=== PATIENT | male | born 1950 | race Caucasian/White ===

== ENCOUNTER → 2016-12-18 | Outpatient (CLI) | payer OTHER, BC ==
[~2016-12-18] MED LIST: ASCO10003 PO; CYAN100020 PO; HYDR-5688 PO; NXM/40 PO; TURM1CAP4 PO
--- NOTE | 2016-12-18 17:43 | DIAGNOSTIC IMAGING REPORT ---
CHEST 2 VIEWS ROUTINE CLINICAL HISTORY: N20.0 preoperative. Nephrocalcinosis. COMPARISON STUDY: No previous studies for comparison. FINDINGS: The bones soft tissues and hemidiaphragms are normal. The cardiomediastinal silhouette is normal. The lungs are clear. The pulmonary vasculature is normal. IMPRESSION: Negative chest. Electronically signed by: Amari James M.D. 12/18/2016 5:42 PM Dictated Date/Time: 12/18/2016 5:41 PM
[2016-12-18 18:10] LABS: BASO % 0.4 %; BASO ABS # 0.03 K/uL (0-0.2); COMPLETE YES; EOS % 1.2 %; HEMATOCRIT 42.3 % (42-52); IG% 0.4 %; LYMPH % 22.2 %; LYMPH ABS # 1.86 K/uL (1.2-3.4); MEAN CORPUSCULAR HEMOGLOBIN 31.5 pg (25-34); MEAN CORPUSCULAR HGB CONC 34.3 g/dl (32-36); MEAN PLATELET VOLUME 10.2 fL (7.4-10.4); MONO % 10.9 %; NEUT % 64.9 %; PLATELET COUNT 259 K/uL (130-400); WHITE BLOOD COUNT 8.36 K/uL (4.8-10.8)
[2016-12-18 18:36] LABS: BLOOD UREA NITROGEN 18 mg/dl (7-18); BUN/CREATININE RATIO 16.4 (10-20); CALCIUM 9.3 mg/dl (8.5-10.1); CARBON DIOXIDE 25 mmol/L (21-32); CHLORIDE 106 mmol/L (98-107); GLUCOSE 78 mg/dl (70-99); SODIUM 141 mmol/L (136-145)
== END | disposition home or self-care (01) ==
LOC: C.LAB 17:14
PROVIDERS: ATTEND Urology
DX: N20.0 Calculus of kidney (principal)

== ENCOUNTER → 2016-12-21 | Outpatient (CLI) | payer OTHER ==
--- NOTE | 2016-12-21 17:01 | DIAGNOSTIC IMAGING REPORT ---
KUB CLINICAL HISTORY: N20.0 Nephrolithiasis COMPARISON STUDY: Outside CT scan dated to 1016 FINDINGS: The renal shadows are largely obscured by overlying bowel gas and fecal material. There is no pathologic bowel dilatation. Prostate brachytherapy seeds are visualized. A 9 mm calculus at the level of the left ureteropelvic junction is not visualized with certainty on this study. IMPRESSION: 1. Technically limited study secondary to overlying bowel gas and fecal material 2. The recently described 9 mm calculus at the level the left ureteropelvic junction is not visualized with certainty Electronically signed by: Gil Atkinson M.D. 12/21/2016 5:00 PM Dictated Date/Time: 12/21/2016 4:57 PM
== END | disposition home or self-care (01) ==
LOC: C.RAD1850 16:38
PROVIDERS: ATTEND Urology
DX: N20.0 Calculus of kidney (principal)

== ENCOUNTER → 2016-12-22 | Day surgery (SDC) | payer OTHER, BC ==
[2016-12-21 08:14] VITALS: Ht 167.6 cm; Wt 84.1 kg
[~2016-12-22] VITALS: Ht 167.6 cm; Wt 84.1 kg
[~2016-12-22] MED LIST changes: +ACETAMINOPHEN 325 MG TAB PO PRN; +ATROPINE SULFATE 0.1 MG/ML 5ML SYR IV PRN; +CIPROFLOXACIN 400MG / D5W IV SCH; +EpHEDrine SULFATE INJ 50 MG/ML AMP IV PRN; +FENTANYL CITRATE INJ 50 MCG/1 ML 2 ML VIAL IV PRN; +FENTANYL CITRATE INJ 50 MCG/1 ML 2 ML VIAL ONE; +HYDROCODONE/ACETAMOPHEN 5/325MG TAB PO PRN; +LACTATED RINGER'S 1000ML 1,000 ML IV SCH; +LIDOCAINE HCL 2% 2 ML VIAL (20MG/ML) ONE; +MIDAZOLAM HCL 1 MG/ML 2ML VIAL ONE; +ONDANSETRON INJ 2 MG/ML 2 ML VIAL ONE; +PATIENT'S ALLERGY INFO NEEDS ENTERED SCH; +PROPOFOL IV EMULSION 10 MG/ML 20 ML VIAL IV ONE; +SODIUM CHLORIDE 0.9% 1000ML 1,000 ML IV SCH; +TAMSULOSIN HCL 0.4 MG CAP PO SCH
--- NOTE | 2016-12-22 10:07 | History & Physical Bridge Note ---
H&P Re-Evaluation Bridge Note: I have examined the patient, reviewed the History & Physical and in the interval since the performance of the History & Physical I have noted the following changes of clinical significance: No changes noted
--- NOTE | 2016-12-22 10:36 | Discharge Instructions-SurgCtr ---
Discharge Instructions Visit Reason for Visit: Stones Discharge Discharge Diagnosis / Problem: stone Discharge Goals Goal(s): Decrease discomfort, Improve function, Increase independence, Improve disease control Activity Recommendations Activity Limitations: resume your previous activity Lifting Limitations: none Exercise/Sports Limitations: none May Resume Sexual Activity: when tolerated Shower/Bathe: no limitations Driving or Machine Use: no limitations Anesthesia . Post Anesthesia Instructions: If you have had General Anesthesia or IV Sedation: * Do not drive today. * Resume driving when surgeon permits. * Do not make important decisions or sign legal documents today. * Call surgeon for: 1. Temperature elevations greater than 101 degrees F. 2. Uncontrollable pain. 3. Excessive bleeding. 4. Persistent nausea and vomiting. 5. Medication intolerance (nausea, vomiting or rash). * For nausea and vomiting use only clear liquids such as: tea, soda, bouillon until nausea subsides, then gradually increase diet as tolerated. * If you have any concerns or questions, call your surgeon's office. If physician is unavailable and it is an emergency, call 911 or go to the nearest emergency room. . Diet Recommendations Home Diet: no limitations Procedures Procedures Performed: Left Extracorporeal Shock Wave Lithotripsy Pending Studies Studies pending at discharge: no Medical Emergencies . Who to Call and When: Medical Emergencies: If at any time you feel your situation is an emergency, please call 911 immediately. . Non-Emergent Contact Non-Emergency issues call your: Urologist Call Non-Emergent contact if: temperature is above 101.5, your pain is not controlled, your pain is worsening . . "Provider Documentation" section prepared by Patrick Carrillo.
--- NOTE | 2016-12-22 10:38 | [facility] Post Operative Brief Note ---
Immediate Operative Summary Operative Date Dec 22, 2016. Pre-Operative Diagnosis Left Renal Stone Post-Operative Diagnosis same Procedure(s) Performed Left Extracorporeal Shock Wave Lithotripsy Surgeon Dr. Guillermo Benítez Supervisor [employer] Surgeon(s) 0 Estimated Blood Loss 0 Findings left renal stone - fragmented nicely Specimens none Drains none Anesthesia gen Complication(s) None Disposition Recovery Room / PACU (stable)
[2016-12-22 11:45] VITALS: TEMP 36.6
[2016-12-22 12:00] VITALS: BP 146/82; PULSE 78; O2SAT 97
--- NOTE | 2016-12-22 12:06 | Anesthesia Progress Nt - [facility] ---
Anesthesia Post Op Note Date & Time Dec 22, 2016 at 12:06 Vital Signs Pain Intensity: 4 Vital Signs Past 12 Hours Date Time Temp Pulse Resp B/P Pulse Ox O2 Delivery O2 Flow Rate FiO2 12/22/16 11:45 36.6 81 16 141/92 97 Room Air 12/22/16 11:24 68 15 120/92 97 12/22/16 11:24 69 15 12/22/16 11:24 36.5 12/22/16 11:19 81 20 12/22/16 11:19 80 20 136/90 97 12/22/16 11:14 68 16 12/22/16 11:14 67 16 133/93 98 12/22/16 11:09 75 23 123/90 100 12/22/16 11:09 75 23 12/22/16 11:04 73 18 12/22/16 11:04 77 18 143/86 99 12/22/16 11:03 37.0 76 16 137/96 100 Diffusion Mask 8 12/22/16 09:11 36.7 86 20 136/89 95 Room Air Notes Mental Status: alert / awake / arousable, participated in evaluation Pt Amnestic to Procedure: Yes Nausea / Vomiting: adequately controlled Pain: adequately controlled Airway Patency, RR, SpO2: stable & adequate BP & HR: stable & adequate Hydration State: stable & adequate Anesthetic Complications: no major complications apparent
--- NOTE | 2016-12-24 13:40 | OPERATIVE REPORT ---
DATE OF OPERATION: 12/22/2016 PREOPERATIVE DIAGNOSIS: Left ureteropelvic junction calculus. POSTOPERATIVE DIAGNOSIS: Left ureteropelvic junction calculus. PROCEDURE PERFORMED: Left extracorporeal shockwave lithotripsy. ANESTHESIA: General. ESTIMATED BLOOD LOSS: Zero. URINE OUTPUT: Not recorded. SPECIMENS: There were no specimens. DRAINS: There were no drains. COMPLICATIONS: There were no complications. DESCRIPTION OF THE PROCEDURE: Sha Schroeder was identified in the preoperative holding area, appropriate informed consents reviewed and completed and the patient was transported to the operating suite. After induction of general anesthesia, his stone was localized under fluoroscopy and lithotripsy was commenced. A total of 2500 shocks were delivered to the stone. Of note, further information can be found on the [facility] Information Sheet. At the conclusion of the case, the patient was extubated and taken to the PACU in stable condition. There were no complications. I attest to the content of the Intraoperative Record and any orders documented therein. Any exceptio ns are noted below.
== END | disposition home or self-care (01) ==
LOC: X.SURG 09:03
PROVIDERS: ATTEND Urology
DX: N20.0 Calculus of kidney (principal); N13.8 Other obstructive and reflux uropathy; C61 Malignant neoplasm of prostate; Z87.442 Personal history of urinary calculi; M19.90 Unspecified osteoarthritis, unspecified site; Z98.890 Other specified postprocedural states

== ENCOUNTER 2016-12-24 02:14 | Inpatient (IN) | payer OTHER, BC ==
[~2016-12-24] VITALS: Ht 167.6 cm; Wt 85.0 kg
[~2016-12-24 02:14] MED LIST changes: -ACETAMINOPHEN 325 MG TAB PO PRN; -ATROPINE SULFATE 0.1 MG/ML 5ML SYR IV PRN; -CIPROFLOXACIN 400MG / D5W IV SCH; -EpHEDrine SULFATE INJ 50 MG/ML AMP IV PRN; -FENTANYL CITRATE INJ 50 MCG/1 ML 2 ML VIAL IV PRN; -FENTANYL CITRATE INJ 50 MCG/1 ML 2 ML VIAL ONE; -HYDROCODONE/ACETAMOPHEN 5/325MG TAB PO PRN; -LACTATED RINGER'S 1000ML 1,000 ML IV SCH; -LIDOCAINE HCL 2% 2 ML VIAL (20MG/ML) ONE; -MIDAZOLAM HCL 1 MG/ML 2ML VIAL ONE; -ONDANSETRON INJ 2 MG/ML 2 ML VIAL ONE; -PATIENT'S ALLERGY INFO NEEDS ENTERED SCH; -PROPOFOL IV EMULSION 10 MG/ML 20 ML VIAL IV ONE; -SODIUM CHLORIDE 0.9% 1000ML 1,000 ML IV SCH; -TAMSULOSIN HCL 0.4 MG CAP PO SCH
[2016-12-24] MEDS ORDERED: SODIUM CHLORIDE 0.9% 500ML 500 ML IV STA (03:35)
[2016-12-24] MEDS ORDERED: HYDROmorphone INJ 1 MG/ML SYR IV STA ×2 (03:35→04:12)
[2016-12-24] MEDS ORDERED: SODIUM CHLORIDE 0.9% 1000ML 1,000 ML IV STA (03:35)
[2016-12-24] MEDS ORDERED: ONDANSETRON INJ 2 MG/ML 2 ML VIAL IV STA (03:35)
[2016-12-24 03:44] LABS: BASO % 0.2 %; BASO ABS # 0.02 K/uL (0-0.2); COMPLETE YES; EOS % 0.2 %; HEMATOCRIT 40.9 % (42-52); IG% 0.2 %; LYMPH % 9.7 %; LYMPH ABS # 1.24 K/uL (1.2-3.4); MEAN CELL VOLUME 91.9 fL (80-100); MEAN CORPUSCULAR HEMOGLOBIN 31.5 pg (25-34); MEAN CORPUSCULAR HGB CONC 34.2 g/dl (32-36); MEAN PLATELET VOLUME 10.2 fL (7.4-10.4); MONO % 9.5 %; NEUT % 80.2 %; PLATELET COUNT 255 K/uL (130-400); RED BLOOD COUNT 4.45 M/uL (4.7-6.1); WHITE BLOOD COUNT 12.72 K/uL (4.8-10.8)
[2016-12-24 03:55] LABS: ALT/SGPT 31 U/L (12-78); BLOOD UREA NITROGEN 10 mg/dl (7-18); BUN/CREATININE RATIO 6.1 (10-20); CALCIUM 8.9 mg/dl (8.5-10.1); CARBON DIOXIDE 28 mmol/L (21-32); CHLORIDE 101 mmol/L (98-107); GLUCOSE 110 mg/dl (70-99); POTASSIUM 4.2 mmol/L (3.5-5.1); SODIUM 136 mmol/L (136-145)
[2016-12-24 03:58] LABS: AST/SGOT 17 U/L (15-37)
[2016-12-24 03:58] LABS: URINE APPEARANCE CLEAR (CLEAR); URINE BILIRUBIN NEG (NEG); URINE COLOR YELLOW; URINE NITRITE NEG (NEG); URINE SPECIFIC GRAVITY 1.024 (1.000-1.030); UROBILINOGEN NEG (NEG); ZZUR CULT IF INDIC CLEAN CATCH NO
[2016-12-24 03:59] LABS: ALKALINE PHOSPHATASE 104 U/L (45-117)
[2016-12-24 04:00] LABS: MANUAL MICROSCOPIC REQUIRED? NO; REVIEW REQ? NO
--- NOTE | 2016-12-24 04:02 | EMERGENCY ROOM VISIT NOTE ---
History Report prepared by Jocelyne: Zackary Alejandra Under the Supervision of: Dr. Zoila Rome M.D. First contact with patient: 03:18 Chief Complaint: KIDNEY STONE Stated Complaint: KIDNEY STONE History of Present Illness The patient is a 66 year old male who presents to the Emergency Room with complaints of worsening left flank pain since this morning. The patient also has pain in the left lower abdomen that radiates to his groin. The patient was diagnosed with a kidney stone two days ago with Dr. Benítez (Urologist). He had an 8 mm stone broken up. The patient denies any vomiting. He has not been eating much secondary to pain. The patient did not have a bowel movement for the past two days. He is not on any stool softeners. The patient has been taking Hydrocodone with his last dose being at midnight. Source of History: patient Onset: this morning Position: back (left flank) Quality: other (kidney stone) Timing: worsening Modifying Factors (Relieving): narcotics Associated Symptoms: + abdominal pain, No vomiting Review of Systems See HPI for pertinent positives & negatives. A total of 10 systems reviewed and were otherwise negative. Past Medical & Surgical Medical Problems: (1) Intractable pain (2) Kidney stone Family History No pertinent family history Social History Smoking Status: Never Smoker Marital Status: Housing Status: lives with family Current/Historical Medications Scheduled Cyanocobalamin (Vitamin B12), 1 TAB PO QAM Esomeprazole Magnesium (Nexium), 40 MG PO QAM Turmeric (Curcuma Longa) (Turmeric), 1 CAP PO QAM Scheduled PRN Hydrocodone/Acetaminophen 5MG/325MG ([place] 5MG/325MG), 1 TAB PO TID PRN for Pain Allergies Coded Allergies: Meperidine (Verified Allergy, Severe, ANAPHYLAXIS, 12/24/16) Physical Exam Vital Signs Date Time Temp Pulse Resp B/P Pulse Ox O2 Delivery O2 Flow Rate FiO2 12/24/16 06:53 101 20 144/106 94 Room Air 12/24/16 05:53 82 18 138/91 94 Room Air 12/24/16 04:08 87 18 161/103 93 Room Air 12/24/16 02:16 36.4 94 18 117/78 94 Room Air Physical Exam Vital signs reviewed. General: Pale and ill-appearing male, in no significant distress. HEENT: No scleral icterus, PERRLA, neck supple. Atraumatic. Cardiovascular: Regular rate and rhythm, no extra sounds. Pulmonary: Clear to auscultation bilaterally, normal work of breathing. Abdomen: Mildly tender to the left upper abdomen and flank, no rebound or guarding. Musculoskeletal: Atraumatic, no peripheral edema. Neurologic: Patient awake alert and oriented x 3, full strength in all 4 extremities. Cranial nerves 2 through 12 grossly intact. Skin: Warm, dry, no rash Medical Decision & Procedures ER Provider Diagnostic Interpretation: X-ray results as stated below per my interpretation and radiologist interpretation. Other radiology results as stated below per my review and radiologist interpretation: ABDOMEN AND PELVIS CT WITHOUT CONTRAST CT DOSE: 1416.84 mGy.cm HISTORY: Left flank pain after lithotripsy TECHNIQUE: Multiaxial CT images of the abdomen and pelvis were performed without contrast. COMPARISON STUDY: Abdomen and pelvis CT 12/08/2016. FINDINGS: Interval development of a left renal subcapsular hematoma resulting in moderate compression of the renal parenchyma. This measures up to 3 cm in thickness. Trace left perinephric edema/hemorrhage. Multiple stones seen within the distal left ureter/ureterovesical junction with the largest measuring 5 mm. The stone within the left renal pelvis is no longer present. There is mild to moderate left-sided hydroureteronephrosis. Small fat-containing bilateral inguinal hernias. Multiple brachytherapy seeds within the prostate gland. Borderline distended gas-filled colon. Moderate stool within the proximal colon. This favors a mild ileus. Small fat-containing umbilical hernia. Hepatic steatosis. The unenhanced gallbladder, spleen, and adrenal glands are unremarkable. There is a punctate stone within the right kidney. No right-sided hydronephrosis. The unenhanced pancreas is unremarkable. IMPRESSION: 1. Left renal subcapsular hematoma, measuring up to 3 cm with moderate compression of the renal parenchyma. There is also trace left perinephric edema/hemorrhage. 2. Multiple stones within the distal left ureter/ureterovesical junction resulting in mild to moderate hydronephrosis. 3. Right-sided nephrolithiasis. Electronically signed by: Allan Gomez M.D. 12/24/2016 6:57 AM Dictated Date/Time: 12/24/2016 6:52 AM KUB HISTORY: Left flank pain COMPARISON: KUB 12/21/2016. FINDINGS: Mildly distended gas and stool-filled colon. A few mildly distended gas-filled loops of small bowel. This favors an ileus. Radiation seeds of the prostate. There are multiple stones within the distal left ureter/ureterovesical junction with the largest measuring 5 mm. No pneumoperitoneum or pneumatosis. No renal calculi. IMPRESSION: Multiple stones within the distal left ureter/ureterovesical junction. Electronically signed by: Allan Gomez M.D. 12/24/2016 7:38 AM Dictated Date/Time: 12/24/2016 7:37 AM Laboratory Results Test 12/24/16 02:30 12/24/16 02:35 Urine Color YELLOW Urine Appearance CLEAR (CLEAR) Urine pH 5.0 (4.5-7.5) Urine Specific [place] 1.024 (1.000-1.030) Urine Protein TRACE (NEG) Urine Glucose (UA) NEG (NEG) Urine Ketones TRACE (NEG) Urine Occult Blood 2+ (NEG) Urine Nitrite NEG (NEG) Urine Bilirubin NEG (NEG) Urine Urobilinogen NEG (NEG) Urine Leukocyte Esterase NEG (NEG) Urine WBC (Auto) 1-5 /hpf (0-5) Urine RBC (Auto) 10-30 /hpf (0-4) Urine Hyaline Casts (Auto) 1-5 /lpf (0-5) Urine Epithelial Cells (Auto) 5-10 /lpf (0-5) Urine Bacteria (Auto) NEG (NEG) Total Bilirubin 0.8 mg/dl (0.2-1) Direct Bilirubin mg/dl (0-0.2) Aspartate Amino Transf (AST/SGOT) 17 U/L (15-37) Alanine Aminotransferase (ALT/SGPT) 31 U/L (12-78) Alkaline Phosphatase 104 U/L (45-117) Total Protein 7.7 gm/dl (6.4-8.2) Albumin 3.9 gm/dl (3.4-5.0) Chemistry Specimen Hemolysis Laboratory results per my review. Medications Administered Medications (Trade) Dose Ordered Sig/Rk Route Start Time Stop Time Status Last Admin Dose Admin Sodium Chloride 500 ml @ 999 mls/hr Q31M STAT IV 12/24/16 03:35 12/24/16 04:05 DC 12/24/16 03:45 999 MLS/HR Sodium Chloride (Nss 1000ml) 1,000 ml @ 125 mls/hr Q8H STAT IV 12/24/16 03:35 12/24/16 09:17 DC 12/24/16 03:45 125 MLS/HR Hydromorphone HCl (Dilaudid Inj) 1 mg NOW STAT IV 12/24/16 03:35 12/24/16 03:39 DC 12/24/16 03:46 1 MG Ondansetron HCl (Zofran Inj) 4 mg NOW STAT IV 12/24/16 03:35 12/24/16 03:39 DC 12/24/16 03:46 4 MG Hydromorphone HCl (Dilaudid Inj) 1 mg NOW STAT IV 12/24/16 04:12 12/24/16 04:13 DC 12/24/16 04:17 1 MG Hydromorphone HCl (Dilaudid Inj) 0.5 mg NOW STAT IV 12/24/16 06:36 12/24/16 06:37 DC 12/24/16 06:53 0.5 MG ED Course 0335: Past medical records reviewed. The patient was evaluated in room A3. A complete history and physical examination was performed. 0335: Zofran 4 mg IV, Dilaudid 1 mg IV, NSS 1000 ml @ 999 mls/hr, NSS 500 ml @ 999 mls/hr. 0412: Dilaudid 1 mg IV. 0636: Dilaudid 0.5 mg IV. 0710: Spoke with the agronomy professor Urologist. 0730: Spoke with Dr. Orellana, [facility]. The patient will be evaluated. Medical Decision Differential diagnosis: Etiologies such as renal colic, appendicitis, diverticulitis, mesenteric ischemia, aortic pathology, infections, inflammatory bowel disease, PUD, biliary pathology, UTI, as well as others were entertained. This patient was evaluated and appeared to be in significant discomfort. IV access was obtained and laboratory work was drawn. Patient was medicated with IV Dilaudid and Zofran. He was hydrated with normal saline solution. The patient required several doses of IV Dilaudid to obtain a reasonable level of comfort. A KUB was obtained and reveals multiple stones within the left distal ureter. The patient continued to complain of significant discomfort. He was sent for CT scan of the abdomen and pelvis which is read as above with a large left renal hematoma. I did discuss the case with Dr. Benítez of urology. He has recommended medical management for pain control and urology consultation. The patient seems happy with this plan and agrees. The case was discussed with Dr. Orellana of the hospitalist service who will evaluate the patient further. Consults Time Called: [phone] Consulting Physician: Dr. Orellana, [facility] Returned Call: [phone]: Spoke with Dr. Orellana [facility]. The patient will be evaluated. Impression Primary Impression: Left flank pain Additional Impressions: Calculus of distal ureter Renal hematoma, left Scribe Attestation The scribe's documentation has been prepared under my direction and personally reviewed by me in its entirety. I confirm that the note above accurately reflects all work, treatment, procedures, and medical decision making performed by me. Departure Information Dispostion Being Evaluated By Hospitalist Prescriptions Hydrocodone/Acetaminophen 5MG/325MG ([place] 5MG/325MG) Tab 1 TAB PO TID Y for Pain, #14 TAB PRN PAIN Prov: Kirstin Lockett MD 12/26/16 Referrals Luis Trejo (PCP) Patient Instructions My [facility] Problem Qualifiers Additional Impressions: Renal hematoma, left Encounter type: initial encounter Qualified Codes: S37.012A - Minor contusion of left kidney, initial encounter
[2016-12-24] MEDS ORDERED: HYDROmorphone INJ 0.5 MG/0.5 ML SYR IV STA (06:36)
--- NOTE | 2016-12-24 06:59 | DIAGNOSTIC IMAGING REPORT ---
ABDOMEN AND PELVIS CT WITHOUT CONTRAST CT DOSE: 1416.84 mGy.cm HISTORY: Left flank pain after lithotripsy TECHNIQUE: Multiaxial CT images of the abdomen and pelvis were performed without contrast. COMPARISON STUDY: Abdomen and pelvis CT 12/08/2016. FINDINGS: Interval development of a left renal subcapsular hematoma resulting in moderate compression of the renal parenchyma. This measures up to 3 cm in thickness. Trace left perinephric edema/hemorrhage. Multiple stones seen within the distal left ureter/ureterovesical junction with the largest measuring 5 mm. The stone within the left renal pelvis is no longer present. There is mild to moderate left-sided hydroureteronephrosis. Small fat-containing bilateral inguinal hernias. Multiple brachytherapy seeds within the prostate gland. Borderline distended gas-filled colon. Moderate stool within the proximal colon. This favors a mild ileus. Small fat-containing umbilical hernia. Hepatic steatosis. The unenhanced gallbladder, spleen, and adrenal glands are unremarkable. There is a punctate stone within the right kidney. No right-sided hydronephrosis. The unenhanced pancreas is unremarkable. IMPRESSION: 1. Left renal subcapsular hematoma, measuring up to 3 cm with moderate compression of the renal parenchyma. There is also trace left perinephric edema/hemorrhage. 2. Multiple stones within the distal left ureter/ureterovesical junction resulting in mild to moderate hydronephrosis. 3. Right-sided nephrolithiasis. Electronically signed by: Allan Gomez M.D. 12/24/2016 6:57 AM Dictated Date/Time: 12/24/2016 6:52 AM
--- NOTE | 2016-12-24 07:40 | DIAGNOSTIC IMAGING REPORT ---
KUB HISTORY: Left flank pain COMPARISON: KUB 12/21/2016. FINDINGS: Mildly distended gas and stool-filled colon. A few mildly distended gas-filled loops of small bowel. This favors an ileus. Radiation seeds of the prostate. There are multiple stones within the distal left ureter/ureterovesical junction with the largest measuring 5 mm. No pneumoperitoneum or pneumatosis. No renal calculi. IMPRESSION: Multiple stones within the distal left ureter/ureterovesical junction. Electronically signed by: Allan Gomez M.D. 12/24/2016 7:38 AM Dictated Date/Time: 12/24/2016 7:37 AM
[2016-12-24] MEDS ORDERED: ONDANSETRON INJ 2 MG/ML 2 ML VIAL IV PRN (07:45)
[2016-12-24] MEDS: SODIUM CHLORIDE 0.9% 1000ML 1,000 ML IV SCH ×2 (07:56→17:46)
[2016-12-24 08:21] VITALS: O2SAT 94; Ht 167.6 cm; Wt 85.0 kg
[2016-12-24 09:10] LABS: PARTIAL THROMBOPLASTIN RATIO 1.2; PROTHROMBIN TIME (PATIENT) 10.6 SECONDS (9.0-12.0)
[2016-12-24 09:22] VITALS: BP 150/97; PULSE 94; TEMP 36.9; O2SAT 91
[2016-12-24] MEDS: HYDROmorphone INJ 1 MG/ML SYR IV PRN ×4 (09:30→23:20)
[2016-12-24] MEDS ORDERED: TAMSULOSIN HCL 0.4 MG CAP PO ONE (10:00)
--- NOTE | 2016-12-24 10:35 | Urology Consultation ---
History General Date of Service: Dec 24, 2016. Primary Care Physician: Luis Trejo Pt seen a urologist before?: Yes If yes, why?: prostate ca; stones History of Present Illness 66y/o male s/p L ESWL on Sunday - started passing some stones yesterday morning - pain simultaneously started and progressed over the next several hours - ultimately led to ER visit - no fevers - some hematuria - some further stone passage - difficult to control pain in the ER - had a KUB (distal stones) - subsequent CT - shows a small/moderate subcapsular hematoma - currently feeling ok - greatly prefers to try to deal with the distal ureteral stones conservatively rather than with a cysto/stent 12/24/16 02:35 Red Blood Count 4.45, Mean Corpuscular Volume 91.9, Mean Corpuscular Hemoglobin 31.5, Mean Corpuscular Hemoglobin Concent 34.2, Mean Platelet Volume 10.2, Neutrophils (%) (Auto) 80.2, Lymphocytes (%) (Auto) 9.7, Monocytes (%) (Auto) 9.5, Eosinophils (%) (Auto) 0.2, Basophils (%) (Auto) 0.2, Neutrophils # (Auto) 10.20, Lymphocytes # (Auto) 1.24, Monocytes # (Auto) 1.21, Eosinophils # (Auto) 0.02, Basophils # (Auto) 0.02 12/24/16 02:35 Test 12/24/16 02:30 12/24/16 02:35 12/24/16 08:24 Urine Color YELLOW Urine Appearance CLEAR (CLEAR) Urine pH 5.0 (4.5-7.5) Urine Specific [place] 1.024 (1.000-1.030) Urine Protein TRACE (NEG) Urine Glucose (UA) NEG (NEG) Urine Ketones TRACE (NEG) Urine Occult Blood 2+ (NEG) Urine Nitrite NEG (NEG) Urine Bilirubin NEG (NEG) Urine Urobilinogen NEG (NEG) Urine Leukocyte Esterase NEG (NEG) Urine WBC (Auto) 1-5 /hpf (0-5) Urine RBC (Auto) 10-30 /hpf (0-4) Urine Hyaline Casts (Auto) 1-5 /lpf (0-5) Urine Epithelial Cells (Auto) 5-10 /lpf (0-5) Urine Bacteria (Auto) NEG (NEG) White Blood Count 12.72 K/uL (4.8-10.8) Red Blood Count 4.45 M/uL (4.7-6.1) Hemoglobin 14.0 g/dL (14.0-18.0) Hematocrit 40.9 % (42-52) Mean Corpuscular Volume 91.9 fL (80-100) Mean Corpuscular Hemoglobin 31.5 pg (25-34) Mean Corpuscular Hemoglobin Concent 34.2 g/dl (32-36) Platelet Count 255 K/uL (130-400) Mean Platelet Volume 10.2 fL (7.4-10.4) Neutrophils (%) (Auto) 80.2 % Lymphocytes (%) (Auto) 9.7 % Monocytes (%) (Auto) 9.5 % Eosinophils (%) (Auto) 0.2 % Basophils (%) (Auto) 0.2 % Neutrophils # (Auto) 10.20 K/uL (1.4-6.5) Lymphocytes # (Auto) 1.24 K/uL (1.2-3.4) Monocytes # (Auto) 1.21 K/uL (0.11-0.59) Eosinophils # (Auto) 0.02 K/uL (0-0.5) Basophils # (Auto) 0.02 K/uL (0-0.2) RDW Standard Deviation 43.1 fL (36.4-46.3) RDW Coefficient of Variation 12.8 % (11.5-14.5) Immature Granulocyte % (Auto) 0.2 % Immature Granulocyte # (Auto) 0.03 K/uL (0.00-0.02) Anion Gap 7.0 mmol/L (3-11) Est Creatinine Clear Calc Drug Dose 47.0 ml/min Estimated GFR () 51.6 Estimated GFR (Non- 44.5 BUN/Creatinine Ratio 6.1 (10-20) Calcium Level 8.9 mg/dl (8.5-10.1) Total Bilirubin 0.8 mg/dl (0.2-1) Direct Bilirubin mg/dl (0-0.2) Aspartate Amino Transf (AST/SGOT) 17 U/L (15-37) Alanine Aminotransferase (ALT/SGPT) 31 U/L (12-78) Alkaline Phosphatase 104 U/L (45-117) Total Protein 7.7 gm/dl (6.4-8.2) Albumin 3.9 gm/dl (3.4-5.0) Chemistry Specimen Hemolysis Prothrombin Time 10.6 SECONDS (9.0-12.0) Prothromb Time International Ratio 1.0 (0.9-1.1) Activated Partial Thromboplast Time 31.0 SECONDS (21.0-31.0) Partial Thromboplastin Ratio 1.2 Hepatitis C Antibody Screen NEG (NEG) Vital Signs Past 12 Hours Date Time Temp Pulse Resp B/P Pulse Ox O2 Delivery O2 Flow Rate FiO2 12/24/16 09:22 36.9 94 19 150/97 91 Room Air 12/24/16 08:38 75 20 164/91 94 12/24/16 08:21 94 Room Air 12/24/16 07:56 85 20 139/89 94 Room Air 12/24/16 06:53 101 20 144/106 94 Room Air 12/24/16 05:53 82 18 138/91 94 Room Air 12/24/16 04:08 87 18 161/103 93 Room Air 12/24/16 02:16 36.4 94 18 117/78 94 Room Air Laboratory Labs were reviewed and are within normal limits unless listed below. Labs are available in the chart and at [facility] Problem List Medical Problems: (1) Calculus of distal ureter Status: Acute (2) Left flank pain Status: Acute (3) Renal hematoma, left Status: Acute Past History cancer - prostate, kidney stones Past Surgical History: lithotripsy, other (brachytherapy for prostate ca) Family History No pertinent family history Social History Hx Tobacco Use In Past Year?: Yes Smoking: non-smoker Marital status: Allergies Coded Allergies: Meperidine (Verified Allergy, Severe, ANAPHYLAXIS, 12/24/16) Medications Home Medications: Home Meds and Scripts Medications Dose Route/Sig Max Daily Dose Days Date Category Dose Instructions Turmeric (Turmeric (Curcuma Longa)) 500 Mg Cap 1 Cap PO QAM 12/21/16 Reported Vitamin B12 (Cyanocobalamin) 1,000 Mcg Tab 1 Tab PO QAM 12/21/16 Reported Vitamin C (Ascorbic Acid) 1,000 Mg Tab 1 Tab PO QAM 12/21/16 Reported Nexium (Esomeprazole Magnesium) 40 Mg Capcr 40 Mg PO QAM 12/21/16 Reported [place] 5MG/325MG (Acetaminophen/Hydrocodone Bitart) Tab 1 Tab PO TID PRN 30 12/21/16 Reported PRN PAIN Inpatient Medications: Current Inpatient Medications Medications (Trade) Dose Ordered Sig/Rk Route Start Time Stop Time Status Last Admin Dose Admin Acetaminophen (Tylenol Tab) 650 mg Q4H PRN PO 12/24/16 07:45 01/23/17 07:44 Ondansetron HCl 4 mg 4 mg Q6H PRN IV 12/24/16 07:45 01/23/17 07:44 Sodium Chloride (Nss 1000ml) 1,000 ml @ 100 mls/hr Q10H IV 12/24/16 07:45 01/23/17 07:44 12/24/16 07:56 100 MLS/HR Hydromorphone HCl (Dilaudid Inj) 1 mg Q4 PRN IV 12/24/16 07:45 01/07/17 07:44 12/24/16 09:30 1 MG Tamsulosin HCl (Flomax Cap) 0.4 mg QAM PO 12/25/16 09:00 01/24/17 08:59 Review of Systems Review of Systems Constitutional: No chills, No fever, No frequent headaches, No problem reported , No see HPI, No weight loss Eyes: No blurred vision, No double vision, No eye pain, No loss of night vision , No problem reported, No see HPI Endocrine: No excessive thirst, No problem reported, No see HPI, No tired/ sluggish, No too cold, No too hot Gastrointestinal: + abdominal pain, + nausea Cardiovascular: No angina, No chest pain, No heart murmur, No irregular heartbeat, No palpitations, No problem reported, No see HPI, No swelling ankles/ feet Respiratory: No chronic cough, No coughing up blood, No problem reported, No see HPI, No shortness of breath, No wheezing Skin: No boils, No dry skin, No problem reported, No rash, No see HPI Musculoskeletal: No arthritis, No back pain, No joint pain, No neck pain, No problem reported, No see HPI Blood / Lymphatic: No bleed easily, No bruise easily, No problem reported, No see HPI, No swollen glands Ears / Nose / Throat: No hearing loss, No hoarse voice, No problem reported, No see HPI, No sinus, No sore throat Psychologic / Mental: No difficulty sleeping, No nervous, No problem reported, No see HPI, No trouble remembering Male : + blood in urine, + kidney stones, + problem reported All Other Systems: Reviewed and Negative Physical Exam Vital Signs: Vital Signs Past 12 Hours Date Time Temp Pulse Resp B/P Pulse Ox O2 Delivery O2 Flow Rate FiO2 12/24/16 09:22 36.9 94 19 150/97 91 Room Air 12/24/16 08:38 75 20 164/91 94 12/24/16 08:21 94 Room Air 12/24/16 07:56 85 20 139/89 94 Room Air 12/24/16 06:53 101 20 144/106 94 Room Air 12/24/16 05:53 82 18 138/91 94 Room Air 12/24/16 04:08 87 18 161/103 93 Room Air 12/24/16 02:16 36.4 94 18 117/78 94 Room Air Physical Exam: General Appearance: WD/WN, no apparent distress Eyes: bilateral eyes normal inspection ENT: hearing grossly normal Neck: supple, no adenopathy Respiratory/Chest: no respiratory distress, no accessory muscle use Cardiovascular: regular rate, rhythm, no edema Gastrointestinal: Abdomen: normal abdomen, pertinent finding (mildly distended) Renal: cva tenderness (minimal tenderness on the left flank ) Extremities: no pedal edema, no calf tenderness Neurologic/Psychiatric: alert, normal mood/affect, oriented x 3 Skin: normal color, warm/dry Lymphatic: no adenopathy Assessment & Plan Assessment & Plan ESWL on Sunday - now with several small, distal L ureteral stones as well as a small subcapsular hematoma 1. Hematoma - uncertain how much of his symptomatology are from this vs the ureteral stones , I suspect the stones are more likely the cause - will check a Hgb tomorrow to be sure he is stable - avoid aspirin/NSAIDS for now 2. Stones - distal ureter - all relatively small - high probability of passage with time, hydration - greatly prefers avoidance of stents PLAN: - diet now - NPO p MN - flomax, hydration
[2016-12-24] MEDS: ACETAMINOPHEN 325 MG TAB PO PRN ×3 (11:25→23:20)
--- NOTE | 2016-12-24 12:18 | History and Physical ---
History & Physical Date & Time of Service: Dec 24, 2016 at 12:07 Chief Complaint: Intractable Pain, Kidney Stone Primary Care Physician: Luis Trejo History of Present Illness Source: patient, family, hospital records 66 yo male with a history of prostate cancer and kidney stones, presents with left flank pain radiating to groin after having lithotripsy two days ago. Dr. Benítez performed lithotripsy for a left sided ureteral stone. The patient said that after the procedure he has some blood and clots but they cleared up quickly. He has been urinating more frequently and he passed approximately 6 small fragments and some sediment. No fever/chills. Last night he noticed that the pain had grown worse. His appetite was poor. Mild nausea but no vomiting. His last BM was Sunday morning prior to the lithotripsy. No chest pain, dyspnea. In the ED a CT scan showed a left sided subcapsular hematoma in the kidney, stones bilaterally in the kidney and some small fragments in the left ureter, mild hydronephrosis. His Cr was up to 1.6 from 1.1 baseline. Urology requested that we admit the patient and consult their services. Past Medical/Surgical History Prostate cancer - diagnosed in late 50's, treated with beads and radiation, in remission currently Osteoarthritis Multiple surgeries left shoulder Knee surgery GERD Kidney stones Family History Father - from prostate cancer, 70's Brother - prostate cancer diagnosed in his late 30's Social History Smoking Status: Never Smoker Marital Status: Allergies Coded Allergies: Meperidine (Verified Allergy, Severe, ANAPHYLAXIS, 12/24/16) Home Medications Scheduled Ascorbic Acid (Vitamin C), 1 TAB PO QAM Cyanocobalamin (Vitamin B12), 1 TAB PO QAM Esomeprazole Magnesium (Nexium), 40 MG PO QAM Turmeric (Curcuma Longa) (Turmeric), 1 CAP PO QAM Scheduled PRN Hydrocodone/Acetaminophen 5MG/325MG ([place] 5MG/325MG), 1 TAB PO TID PRN for Pain Review of Systems Constitutional: + fatigue, + weakness, No chills, No fever, No problem reported , No sweats, No weight loss Eyes: No diplopia, No discharge, No eye pain, No problem reported, No redness, No worsening of vision ENT: No dental problems, No hearing loss, No nasal symptoms, No problem reported, No sore throat, No tinnitus, No trouble swallowing, No unusual epistaxis Respiratory: No cough, No dyspnea at rest, No dyspnea on exertion, No hemoptysis, No problem reported, No shortness of breath, No sputum, No wheezing Cardiovascular: No PND, No chest pain, No claudication, No edema, No orthopnea , No palpitations, No problem reported Abdomen: + nausea, + problem reported (left flank pain), No GI bleeding, No constipation, No diarrhea, No pain, No vomiting Musculoskeletal: No calf pain, No joint pain, No muscle pain, No problem reported, No swelling Genitourinary - Male: + hematuria, + problem reported (passing stone fragments) , + urinary frequency, No dysuria, No urinary hesitancy, No urinary incontinence , No urinary retention, No urinary urgency Neurologic: No balance problems, No memory loss, No numbness/tingling, No paralysis, No problem reported, No vertigo, No weakness Psychiatric: No anhedonism, No anxiety, No depression symptoms, No insomnia, No problem reported, No substance abuse Endocrine: No excessive thirst, No excessive urination, No fatigue, No problem reported Hematologic / Lymphatic: No abnormal bleeding/bruising, No clotting problems, No night sweats, No problem reported, No swollen lymph nodes Integumentary: No bleeding, No color change, No itch, No new/changing skin lesions, No problem reported, No rash Allergic / Immunologic: No environmental allergies, No food allergies, No frequent infections, No hives, No pet sensitivities, No poor healing, No problem reported, No prolonged convalescence, No seasonal allergies Physical Exam Vital Signs Date Time Temp Pulse Resp B/P Pulse Ox O2 Delivery O2 Flow Rate FiO2 12/24/16 09:22 36.9 94 19 150/97 91 Room Air 12/24/16 08:38 75 20 164/91 94 12/24/16 08:21 94 Room Air 12/24/16 07:56 85 20 139/89 94 Room Air 12/24/16 06:53 101 20 144/106 94 Room Air 12/24/16 05:53 82 18 138/91 94 Room Air 12/24/16 04:08 87 18 161/103 93 Room Air 12/24/16 02:16 36.4 94 18 117/78 94 Room Air General Appearance: WD/WN, no apparent distress Head: normocephalic, atraumatic Eyes: normal inspection, EOMI, sclerae normal ENT: normal ENT inspection, hearing grossly normal, pharynx normal Neck: supple, no adenopathy, no JVD, trachea midline Respiratory/Chest: chest non-tender, lungs clear, normal breath sounds, no respiratory distress, no accessory muscle use Cardiovascular: regular rate, rhythm, no edema, no gallop, no JVD, no murmur, normal peripheral pulses Abdomen/GI: normal bowel sounds, non tender, soft, no organomegaly Back: normal inspection, no muscle spasm, normal range of motion, + left CVA tenderness Extremities/Musculoskelatal: normal inspection, no calf tenderness, normal capillary refill, no pedal edema, normal range of motion, pelvis stable 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, no motor/sensory deficits, alert, normal mood/affect, normal reflexes, oriented x 3 Skin: normal color, warm/dry, no rash Lymphatic: no adenopathy Diagnostics Laboratory Results Results Past 24 Hours Test 12/24/16 02:30 12/24/16 02:35 12/24/16 08:24 Range/Units Urine Color YELLOW Urine Appearance CLEAR CLEAR Urine pH 5.0 4.5-7.5 Urine Specific [place] 1.024 1.000-1.030 Urine Protein TRACE NEG Urine Glucose (UA) NEG NEG Urine Ketones TRACE NEG Urine Occult Blood 2+ NEG Urine Nitrite NEG NEG Urine Bilirubin NEG NEG Urine Urobilinogen NEG NEG Urine Leukocyte Esterase NEG NEG Urine WBC (Auto) 1-5 0-5 /hpf Urine RBC (Auto) 10-30 0-4 /hpf Urine Hyaline Casts (Auto) 1-5 0-5 /lpf Urine Epithelial Cells (Auto) 5-10 0-5 /lpf Urine Bacteria (Auto) NEG NEG White Blood Count 12.72 4.8-10.8 K/uL Red Blood Count 4.45 4.7-6.1 M/uL Hemoglobin 14.0 14.0-18.0 g/dL Hematocrit 40.9 42-52 % Mean Corpuscular Volume 91.9 80-100 fL Mean Corpuscular Hemoglobin 31.5 25-34 pg Mean Corpuscular Hemoglobin Concent 34.2 32-36 g/dl Platelet Count 255 130-400 K/uL Mean Platelet Volume 10.2 7.4-10.4 fL Neutrophils (%) (Auto) 80.2 % Lymphocytes (%) (Auto) 9.7 % Monocytes (%) (Auto) 9.5 % Eosinophils (%) (Auto) 0.2 % Basophils (%) (Auto) 0.2 % Neutrophils # (Auto) 10.20 1.4-6.5 K/uL Lymphocytes # (Auto) 1.24 1.2-3.4 K/uL Monocytes # (Auto) 1.21 0.11-0.59 K/uL Eosinophils # (Auto) 0.02 0-0.5 K/uL Basophils # (Auto) 0.02 0-0.2 K/uL RDW Standard Deviation 43.1 36.4-46.3 fL RDW Coefficient of Variation 12.8 11.5-14.5 % Immature Granulocyte % (Auto) 0.2 % Immature Granulocyte # (Auto) 0.03 0.00-0.02 K/uL Sodium Level 136 136-145 mmol/L Potassium Level 4.2 3.5-5.1 mmol/L Chloride Level 101 98-107 mmol/L Carbon Dioxide Level 28 21-32 mmol/L Anion Gap 7.0 3-11 mmol/L Blood Urea Nitrogen 10 7-18 mg/dl Creatinine 1.60 0.60-1.40 mg/dl Est Creatinine Clear Calc Drug Dose 47.0 ml/min Estimated GFR () 51.6 Estimated GFR (Non- 44.5 BUN/Creatinine Ratio 6.1 10-20 Random Glucose 110 70-99 mg/dl Calcium Level 8.9 8.5-10.1 mg/dl Total Bilirubin 0.8 0.2-1 mg/dl Direct Bilirubin 0-0.2 mg/dl Aspartate Amino Transf (AST/SGOT) 17 15-37 U/L Alanine Aminotransferase (ALT/SGPT) 31 12-78 U/L Alkaline Phosphatase 104 45-117 U/L Total Protein 7.7 6.4-8.2 gm/dl Albumin 3.9 3.4-5.0 gm/dl Chemistry Specimen Hemolysis Prothrombin Time 10.6 9.0-12.0 SECONDS Prothromb Time International Ratio 1.0 0.9-1.1 Activated Partial Thromboplast Time 31.0 21.0-31.0 SECONDS Partial Thromboplastin Ratio 1.2 Hepatitis C Antibody Screen NEG NEG Diagnostic Radiology ABDOMEN AND PELVIS CT WITHOUT CONTRAST CT DOSE: 1416.84 mGy.cm HISTORY: Left flank pain after lithotripsy TECHNIQUE: Multiaxial CT images of the abdomen and pelvis were performed without contrast. COMPARISON STUDY: Abdomen and pelvis CT 12/08/2016. FINDINGS: Interval development of a left renal subcapsular hematoma resulting in moderate compression of the renal parenchyma. This measures up to 3 cm in thickness. Trace left perinephric edema/hemorrhage. Multiple stones seen within the distal left ureter/ureterovesical junction with the largest measuring 5 mm. The stone within the left renal pelvis is no longer present. There is mild to moderate left-sided hydroureteronephrosis. Small fat-containing bilateral inguinal hernias. Multiple brachytherapy seeds within the prostate gland. Borderline distended gas-filled colon. Moderate stool within the proximal colon. This favors a mild ileus. Small fat-containing umbilical hernia. Hepatic steatosis. The unenhanced gallbladder, spleen, and adrenal glands are unremarkable. There is a punctate stone within the right kidney. No right-sided hydronephrosis. The unenhanced pancreas is unremarkable. IMPRESSION: 1. Left renal subcapsular hematoma, measuring up to 3 cm with moderate compression of the renal parenchyma. There is also trace left perinephric edema/hemorrhage. 2. Multiple stones within the distal left ureter/ureterovesical junction resulting in mild to moderate hydronephrosis. 3. Right-sided nephrolithiasis. Impression Assessment and Plan 66 yo male with left flank pain after lithotripsy, presents with subcapsular hematoma and SHEFALI - Left sided renal stones, associated with left subcapsular hematoma urology consult noted, will plan for conservative care with IV fluids, flomax try to avoid cystoscopy and left ureteral stent placement will follow H/H this afternoon and in the AM, type and screen, no evidence of anemia at this time Dilaudid PRN for pain - SHEFALI associated with left hydronephrosis, renal stones IV fluids at 100cc/hr, avoid NSAIDs, nephrotoxins repeat labs in AM, follow UO - GERD: PPI - Prostate cancer: in remission - DVT prophylaxis: SCD only due to bleeding Level of Care Med/Surg Advanced Directives Existing Living Will: No Existing Power of Surplus Property Disposal Agent: No Resuscitation Status FULL RESUSCITATION VTE Prophylaxis VTE Risk Assessment Done? Y/N: Yes Risk Level: Moderate Given or contraindicated: SCD's Additional Copies To Rob Benítez M.D.
[2016-12-24 14:41] LABS: HEMATOCRIT 38.6 % (42-52)
[2016-12-24 15:02] VITALS: BP 135/82; PULSE 104; TEMP 37.4; O2SAT 92
[2016-12-24 22:48] VITALS: BP 132/83; PULSE 99; TEMP 36.8; O2SAT 96
[2016-12-25] MEDS: SODIUM CHLORIDE 0.9% 1000ML 1,000 ML IV SCH ×3 (03:18→23:38)
[2016-12-25] MEDS: HYDROmorphone INJ 1 MG/ML SYR IV PRN ×4 (03:18→21:52)
[2016-12-25 06:43] LABS: BASO % 0.2 %; BASO ABS # 0.02 K/uL (0-0.2); COMPLETE YES; EOS % 0.7 %; IG% 0.2 %; LYMPH ABS # 1.58 K/uL (1.2-3.4); MEAN CELL VOLUME 93.7 fL (80-100); MEAN CORPUSCULAR HEMOGLOBIN 31.9 pg (25-34); MEAN CORPUSCULAR HGB CONC 34.1 g/dl (32-36); MEAN PLATELET VOLUME 10.3 fL (7.4-10.4); MONO % 13.9 %; PLATELET COUNT 216 K/uL (130-400); RED BLOOD COUNT 3.95 M/uL (4.7-6.1); WHITE BLOOD COUNT 9.88 K/uL (4.8-10.8)
[2016-12-25] MEDS: TAMSULOSIN HCL 0.4 MG CAP PO SCH (07:05)
[2016-12-25 07:15] LABS: BUN/CREATININE RATIO 7.4 (10-20); CALCIUM 8.6 mg/dl (8.5-10.1); CREATININE 1.4 mg/dl (0.60-1.40); POTASSIUM 3.9 mmol/L (3.5-5.1)
[2016-12-25 08:03] VITALS: BP 148/90; PULSE 82; TEMP 36.8; O2SAT 94
--- NOTE | 2016-12-25 08:50 | Progress Note ---
Subjective Date of Service: Dec 25, 2016. Subjective Pt evaluation today including: conversation w/ patient, chart review, lab review Voiding: no voiding problems 66 yo male with intractable left flank pain s/p left ESWL. He reports passing at least 3-4 stone fragments yesterday afternoon. Continues to have left flank pain 4-5/10 every 4-5 hrs requiring pain medicine. He denies much improvement in the pain since passing the fragments. Denies n/v. Denies dysuria or hematuria. Problem List Medical Problems: (1) Calculus of distal ureter Status: Acute (2) Left flank pain Status: Acute (3) Renal hematoma, left Status: Acute Review of Systems Constitutional: No chills, No fever Respiratory: No shortness of breath Cardiac: No chest pain Abdomen: + pain (LLQ and flank ), + see HPI, No nausea, No vomiting Male : No dysuria, No hematuria Heme: No abnormal bleeding/bruising Objective Vital Signs Date Time Temp Pulse Resp B/P Pulse Ox O2 Delivery O2 Flow Rate FiO2 12/25/16 08:03 36.8 82 15 148/90 94 Room Air 12/25/16 07:43 Room Air 12/24/16 23:15 Room Air 12/24/16 22:48 36.8 99 18 132/83 96 Room Air 12/24/16 15:30 Room Air 12/24/16 15:02 37.4 104 18 135/82 92 Room Air 12/24/16 09:22 36.9 94 19 150/97 91 Room Air 12/24/16 09:20 Room Air Physical Exam General Appearance: no apparent distress Eyes: normal inspection ENT: hearing grossly normal Neck: no JVD Respiratory/Chest: no respiratory distress, no accessory muscle use Cardiovascular: no JVD Extremities: normal inspection Neurologic/Psychiatric: alert, normal mood/affect, oriented x 3 Skin: normal color Laboratory Results Last 24 Hours Test 12/24/16 14:26 12/24/16 18:28 12/25/16 05:55 Hemoglobin 13.2 g/dL 12.6 g/dL Hematocrit 38.6 % 37.0 % White Blood Count 9.88 K/uL Red Blood Count 3.95 M/uL Mean Corpuscular Volume 93.7 fL Mean Corpuscular Hemoglobin 31.9 pg Mean Corpuscular Hemoglobin Concent 34.1 g/dl Platelet Count 216 K/uL Mean Platelet Volume 10.3 fL Neutrophils (%) (Auto) 69.0 % Lymphocytes (%) (Auto) 16.0 % Monocytes (%) (Auto) 13.9 % Eosinophils (%) (Auto) 0.7 % Basophils (%) (Auto) 0.2 % Neutrophils # (Auto) 6.82 K/uL Lymphocytes # (Auto) 1.58 K/uL Monocytes # (Auto) 1.37 K/uL Eosinophils # (Auto) 0.07 K/uL Basophils # (Auto) 0.02 K/uL RDW Standard Deviation 44.2 fL RDW Coefficient of Variation 12.8 % Immature Granulocyte % (Auto) 0.2 % Immature Granulocyte # (Auto) 0.02 K/uL Sodium Level 138 mmol/L Potassium Level 3.9 mmol/L Chloride Level 104 mmol/L Carbon Dioxide Level 26 mmol/L Anion Gap 8.0 mmol/L Blood Urea Nitrogen 10 mg/dl Creatinine 1.40 mg/dl Est Creatinine Clear Calc Drug Dose 53.8 ml/min Estimated GFR () 60.7 Estimated GFR (Non- 52.4 BUN/Creatinine Ratio 7.4 Random Glucose 94 mg/dl Calcium Level 8.6 mg/dl Magnesium Level 2.0 mg/dl Assessment and Plan A/P: Left ureteral stones and left flank pain s/p left ESWL. AFVSS. Pain persists today. Discussed with the pt today stent placement vs continued observation and supportive management. He prefers observation and supportive management at this time as he did pass several fragments which is encouraging. He has also had a stent placement in the past which was not well tolerated. Pain may be secondary to post-op subcapsular hematoma of the left kidney. Recommend he remain inpatient overnight for pain control. Hopefully improved tomorrow and possible d/c home at that time. Will get a KUB and labs in the AM. Will provide a diet today. NPO after midnight in the event stent placement is needed tomorrow. Will continue to follow along with primary service at this time.
[2016-12-25 09:18] VITALS: O2SAT 94
[2016-12-25] MEDS ORDERED: NURSING VERBAL MED ORDER STA (10:42)
[2016-12-25] MEDS ORDERED: PANTOprazole SOD 40 MG TAB PO ONE (11:00)
--- NOTE | 2016-12-25 12:12 | Clinical Documentation Query ---
MARCELO Velasco : CLINICAL DOCUMENTATION QUERY Patient is a 66 year old male presenting s/p ESWL of left ureteral stone with worsening pain. CT scan demonstrated a left sided subcapsular hematoma, stones bilaterally in the kidney and some small fragments in the left ureter, and mild hydronephrosis. As able and appropriate, please explicitly specify whether or not, in your clinical opinion, this represents a complication of the previously performed procedure or not. Thank you. In your clinical opinion is this patient being managed for: ( x) Postprocedural left subcapsular hematoma, a complication of ESWL performed two days prior to admission. ( ) Other explanation of clinical findings (Please Explain) ( ) Unable to determine (Please Define) ( ) Need to Discuss ( ) Not Agree The medical record reflects the following clinical findings, treatment, and risk factors. Clinical Indicators: As above Treatment: Urology consult, IVF, flomax, serial H/H Risk Factors: ESWL Please clarify and document your clinical opinion in the progress notes and discharge summary. Terms such as "probable", "suspected", "likely", "questionable", "possible", or "still to be ruled out" are acceptable. IF IN AGREEMENT, YOU MUST DOCUMENT ABOVE DIAGNOSTIC STATEMENT IN DAILY PROGRESS NOTES AND DISCHARGE SUMMARY. This document is not part of the patient's record. Thank You, Khai Duran, JASON [phone]
--- NOTE | 2016-12-25 14:40 | Progress Note ---
Subjective Date of Service: Dec 25, 2016. Subjective Pt evaluation today including: conversation w/ patient, conversation w/ family , physical exam, chart review, lab review, review of studies, review of inpatient medication list Still some soreness on the left flank area. Reports passing some stones 3-4 since admission. No chest pain, no sob. No new complaints Problem List Medical Problems: (1) Calculus of distal ureter Status: Acute (2) Left flank pain Status: Acute (3) Renal hematoma, left Status: Acute Review of Systems All Other Systems: Reviewed and Negative Medications Acetaminophen (Tylenol Tab) 650 mg Q4H PRN PO Last administered on 12/24/16 23:20; Admin Dose 650 MG; Start 12/24/16 at 07:45; Stop 01/23/17 at 07:44 Hydromorphone HCl (Dilaudid Inj) 1 mg Q4 PRN IV Last administered on 12/25/16 13:03; Admin Dose 1 MG; Start 12/24/16 at 07:45; Stop 01/07/17 at 07:44 Ondansetron HCl 4 mg 4 mg Q6H PRN IV; Start 12/24/16 at 07:45; Stop 01/23/17 at 07:44 Pantoprazole Sodium (Protonix Tab) 40 mg QAM PO; Start 12/26/16 at 09:00; Stop 01/25/17 at 08:59 Sodium Chloride (Nss 1000ml) 1,000 ml @ 100 mls/hr Q10H IV Last administered on 12/25/16 13:06; Admin Dose 100 MLS/HR; Start 12/24/16 at 07:45; Stop at 07:44 Tamsulosin HCl (Flomax Cap) 0.4 mg QAM PO Last administered on 12/25/16 07:05; Admin Dose 0.4 MG; Start 12/25/16 at 09:00; Stop 01/24/17 at 08:59 Objective Vital Signs Date Time Temp Pulse Resp B/P Pulse Ox O2 Delivery O2 Flow Rate FiO2 12/25/16 09:18 94 Room Air 12/25/16 08:03 36.8 82 15 148/90 94 Room Air 12/25/16 07:43 Room Air 12/24/16 23:15 Room Air 12/24/16 22:48 36.8 99 18 132/83 96 Room Air 12/24/16 15:30 Room Air 12/24/16 15:02 37.4 104 18 135/82 92 Room Air Physical Exam Comments: nad, aox3, coherent with fluent speech eomi, perrl, anicteric sclerae s1 s2 rrr, no m/r/g ctab no w/r/r abd soft, nt/nd +BS no CVA tenderness no LE edema cn 2-12 grossly intact with no facial drooping Laboratory Results Last 24 Hours Test 12/24/16 18:28 12/25/16 05:55 White Blood Count 9.88 K/uL Red Blood Count 3.95 M/uL Hemoglobin 12.6 g/dL Hematocrit 37.0 % Mean Corpuscular Volume 93.7 fL Mean Corpuscular Hemoglobin 31.9 pg Mean Corpuscular Hemoglobin Concent 34.1 g/dl Platelet Count 216 K/uL Mean Platelet Volume 10.3 fL Neutrophils (%) (Auto) 69.0 % Lymphocytes (%) (Auto) 16.0 % Monocytes (%) (Auto) 13.9 % Eosinophils (%) (Auto) 0.7 % Basophils (%) (Auto) 0.2 % Neutrophils # (Auto) 6.82 K/uL Lymphocytes # (Auto) 1.58 K/uL Monocytes # (Auto) 1.37 K/uL Eosinophils # (Auto) 0.07 K/uL Basophils # (Auto) 0.02 K/uL RDW Standard Deviation 44.2 fL RDW Coefficient of Variation 12.8 % Immature Granulocyte % (Auto) 0.2 % Immature Granulocyte # (Auto) 0.02 K/uL Sodium Level 138 mmol/L Potassium Level 3.9 mmol/L Chloride Level 104 mmol/L Carbon Dioxide Level 26 mmol/L Anion Gap 8.0 mmol/L Blood Urea Nitrogen 10 mg/dl Creatinine 1.40 mg/dl Est Creatinine Clear Calc Drug Dose 53.8 ml/min Estimated GFR () 60.7 Estimated GFR (Non- 52.4 BUN/Creatinine Ratio 7.4 Random Glucose 94 mg/dl Calcium Level 8.6 mg/dl Magnesium Level 2.0 mg/dl Assessment and Plan 66 yo M pmh prostate ca s/p seed implant and completed course in 2010, recurrent kidney stones s/p recent ESWL now with subcapsular perinephric hematoma 1. Subcapsular perinephric hematoma - pain regimen - creat trended down - will cont to monitor 2. recurrent renal calculi - advised on decreased soda intake - advised on increase fluid intake 2-3L of fluid daily to produce ~2L urine - Advised to stop Vitamin C supplements, avoid Ca supplements - Recommend regular Ca in diet - cont HCTZ - will need outpatient 24-hr urine [facility] in 6 weeks or so 3. BPH h/o prostate ca - cont flomax
[2016-12-25 15:30] VITALS: BP 143/79; PULSE 99; TEMP 37; O2SAT 94
[2016-12-25 23:20] VITALS: BP 136/80; PULSE 83; TEMP 37.2; O2SAT 96
[2016-12-26 06:57] LABS: BASO % 0.2 %; BASO ABS # 0.02 K/uL (0-0.2); COMPLETE YES; EOS % 0.8 %; HEMATOCRIT 35.2 % (42-52); IG% 0.4 %; LYMPH % 12.5 %; LYMPH ABS # 1.05 K/uL (1.2-3.4); MEAN CELL VOLUME 90.7 fL (80-100); MEAN CORPUSCULAR HEMOGLOBIN 31.4 pg (25-34); MEAN CORPUSCULAR HGB CONC 34.7 g/dl (32-36); MEAN PLATELET VOLUME 10.2 fL (7.4-10.4); MONO % 11.4 %; NEUT % 74.7 %; PLATELET COUNT 230 K/uL (130-400); RED BLOOD COUNT 3.88 M/uL (4.7-6.1); WHITE BLOOD COUNT 8.37 K/uL (4.8-10.8)
[2016-12-26 07:27] LABS: BUN/CREATININE RATIO 6.5 (10-20); CALCIUM 8.7 mg/dl (8.5-10.1); CREATININE 1.3 mg/dl (0.60-1.40); POTASSIUM 3.6 mmol/L (3.5-5.1)
--- NOTE | 2016-12-26 07:30 | Progress Note ---
Subjective Date of Service: Dec 26, 2016. Subjective Pt evaluation today including: conversation w/ patient, chart review, lab review Voiding: no voiding problems 66 yo male with intractable pain and distal ureteral stone fragments s/p left ESWL. Pt reports his pain has improved this AM. Denies passing any further fragments overnight. KUB pending this AM. Denies dysuria or hematuria. Denies n/v. UC&S pending. Problem List Medical Problems: (1) Calculus of distal ureter Status: Acute (2) Left flank pain Status: Acute (3) Renal hematoma, left Status: Acute Review of Systems Constitutional: No chills, No fever Respiratory: No shortness of breath Cardiac: No chest pain Abdomen: No nausea, No pain, No vomiting Male : No dysuria, No hematuria Heme: No abnormal bleeding/bruising Objective Vital Signs Date Time Temp Pulse Resp B/P Pulse Ox O2 Delivery O2 Flow Rate FiO2 12/25/16 23:20 37.2 83 18 136/80 96 Room Air 12/25/16 23:20 Room Air 12/25/16 15:40 Room Air 12/25/16 15:30 37.0 99 16 143/79 94 Room Air 12/25/16 09:18 94 Room Air 12/25/16 08:03 36.8 82 15 148/90 94 Room Air 12/25/16 07:43 Room Air Physical Exam General Appearance: no apparent distress Eyes: normal inspection ENT: hearing grossly normal Neck: no JVD Respiratory/Chest: no respiratory distress, no accessory muscle use Cardiovascular: no JVD Extremities: normal inspection Neurologic/Psychiatric: alert, normal mood/affect, oriented x 3 Skin: normal color Laboratory Results Last 24 Hours Test 12/26/16 06:28 White Blood Count 8.37 K/uL Red Blood Count 3.88 M/uL Hemoglobin 12.2 g/dL Hematocrit 35.2 % Mean Corpuscular Volume 90.7 fL Mean Corpuscular Hemoglobin 31.4 pg Mean Corpuscular Hemoglobin Concent 34.7 g/dl Platelet Count 230 K/uL Mean Platelet Volume 10.2 fL Neutrophils (%) (Auto) 74.7 % Lymphocytes (%) (Auto) 12.5 % Monocytes (%) (Auto) 11.4 % Eosinophils (%) (Auto) 0.8 % Basophils (%) (Auto) 0.2 % Neutrophils # (Auto) 6.25 K/uL Lymphocytes # (Auto) 1.05 K/uL Monocytes # (Auto) 0.95 K/uL Eosinophils # (Auto) 0.07 K/uL Basophils # (Auto) 0.02 K/uL RDW Standard Deviation 41.8 fL RDW Coefficient of Variation 12.6 % Immature Granulocyte % (Auto) 0.4 % Immature Granulocyte # (Auto) 0.03 K/uL Assessment and Plan A/P: Left ureteral stones and left flank pain s/p left ESWL. AFVSS. Will avoid stent placement as the pt's pain has improved today and no evidence of sepsis. Will provide a diet. Check KUB for stone passage. Pt OK for d/c home from [facility]. Recall PRN issues. He will keep his post-op f/u with Dr. Benítez as scheduled. Discharge planning: home
[2016-12-26 07:51] VITALS: BP 135/85; PULSE 78; TEMP 36.9; O2SAT 97
--- NOTE | 2016-12-26 08:11 | Discharge Instructions ---
Discharge Instructions Admission Reason for Admission: Intractable Pain, Kidney Stone Discharge Discharge Diagnosis / Problem: stable for home Discharge Goals Goal(s): Decrease discomfort Activity Recommendations Activity Limitations: resume your previous activity . Current Hospital Diet Patient's current hospital diet: Regular Diet Discharge Diet Recommended Diet: Regular Diet Pending Studies Studies pending at discharge: yes List of pending studies: [facility] Medical Emergencies . Who to Call and When: Medical Emergencies: If at any time you feel your situation is an emergency, please call 911 immediately. . Non-Emergent Contact Non-Emergency issues call your: Primary Care Provider, Urologist . . "Provider Documentation" section prepared by Kirstin Lockett. VTE Core Measure Inpt VTE Proph given/why not?: SCD's
[2016-12-26] MEDS: TAMSULOSIN HCL 0.4 MG CAP PO SCH (08:53)
[2016-12-26] MEDS ORDERED: PANTOprazole SOD 40 MG TAB PO SCH (09:00)
--- NOTE | 2016-12-26 09:05 | Discharge Summary ---
Discharge Summary Date of Service Dec 26, 2016. Discharge Summary Admission Date: Dec 24, 2016 at 07:44 Discharge Date: Dec 26, 2016 Discharge Disposition: Home Principal Diagnosis: subcapsular perinephric hematoma Problems/Secondary Diagnoses: renal calculi Hospital Course On day of discharge, patient felt better. No severe flank pain, just some "soreness." NO chest pain , no sob and has good appetite. Vital Signs Date Time Temp Pulse Resp B/P Pulse Ox O2 Delivery O2 Flow Rate FiO2 12/26/16 10:35 36.9 78 18 97 Room Air 12/26/16 07:51 135/85 nad, aox3 eomi, perrl, anicteric s1 s2 rrr, no m/r/g ctab no w/r/r abd soft, nt/nd +BS no LE edema 66 yo M pmh prostate ca s/p seed implant and completed course in 2010, recurrent kidney stones s/p recent ESWL now with subcapsular perinephric hematoma found CT abdomen. 1. Subcapsular perinephric hematoma - pain regimen - creat trended down - urology evaluation was done during the admission and patient did pass several stones - will discharge with additional pain medications 2. recurrent renal calculi - advised on decreased soda intake - advised on increase fluid intake 2-3L of fluid daily to produce ~2L urine - Advised to stop Vitamin C supplements, avoid Ca supplements - Recommend regular Ca in diet - cont HCTZ - will need outpatient 24-hr urine [facility] in 6 weeks or so 3. BPH h/o prostate ca - cont flomax Total Time Spent: Less than 30 minutes This includes examination of the patient, discharge planning, medication reconciliation, and communication with other providers. Discharge Instructions Please refer to the electronic Patient Visit Report (Discharge Instructions) for additional information. Follow-Up PCP, Urology Additional Copies To Luis Trejo
--- NOTE | 2016-12-26 09:33 | DIAGNOSTIC IMAGING REPORT ---
KUB CLINICAL HISTORY: ureteral stones nephrocalcinosis COMPARISON STUDY: 12/24/2016 FINDINGS: Calcifications previously described overlying the distal left ureter now well seen currently. Bowel pattern is nonobstructive. No evidence for significant nephrocalcinosis currently. IMPRESSION: Improved exam. No significant ureteral calcifications of the current time Electronically signed by: Amari James M.D. 12/26/2016 9:32 AM Dictated Date/Time: 12/26/2016 9:31 AM
[2016-12-26] MEDS: SODIUM CHLORIDE 0.9% 1000ML 1,000 ML IV SCH (10:18)
[2016-12-26] MEDS ORDERED: HYDR-5688 PO (10:24)
[2016-12-26 10:35] VITALS: BP 135/85; PULSE 78; TEMP 36.9; O2SAT 97
[2017-03-06] MEDS ORDERED: HYDR-5688 PO (07:11)
== END 2016-12-26 12:05 | disposition home or self-care (01) | DRG 920 ==
LOC: ENRESERVTM → ENRESERVDT → C.EDB 02:15 → C.MSW 07:44
PROVIDERS: ADMIT Internal Medicine; ATTEND Internal Medicine
PROC: 0TF4XZZ Fragmentation in Left Kidney Pelvis, External Approach (ICD-10-PCS; principal; 2016-12-22)
DX: N99.840 Postprocedural hematoma of a genitourinary system organ or structure following a genitourinary system procedure (principal); S37.012A Minor contusion of left kidney, initial encounter; N20.1 Calculus of ureter; N17.9 Acute kidney failure, unspecified; N13.8 Other obstructive and reflux uropathy; Y84.3 Shock therapy as the cause of abnormal reaction of the patient, or of later complication, without mention of misadventure at the time of the procedure; N20.0 Calculus of kidney; N40.0 Benign prostatic hyperplasia without lower urinary tract symptoms; K21.9 Gastro-esophageal reflux disease without esophagitis; M19.90 Unspecified osteoarthritis, unspecified site; Z87.442 Personal history of urinary calculi; Z85.46 Personal history of malignant neoplasm of prostate; Z98.890 Other specified postprocedural states; Z88.5 Allergy status to narcotic agent; Z80.42 Family history of malignant neoplasm of prostate

== ENCOUNTER → 2017-03-06 | Day surgery (SDC) | payer OTHER, BC ==
[2017-02-26 07:49] VITALS: Ht 167.6 cm; Wt 86.4 kg
[~2017-03-06] VITALS: Ht 167.6 cm; Wt 86.4 kg
[~2017-03-06] MED LIST changes: -ASCO10003 PO; +BUPIVACAINE/EPINEPHRINE 0.25% 1:200,000 30 ML VIAL ONE; +BUPIVACAINE/EPINEPHRINE 0.5% MPF 1:200,000 30 ML VIAL ONE; +CEFAZOLIN 2000 MG/60 ML D5W IV SCH; +DEXAMETHASONE SOD INJ 4 MG/ML VIAL ONE; +FENTANYL CITRATE INJ 50 MCG/1 ML 2 ML VIAL IV PRN; +FENTANYL CITRATE INJ 50 MCG/1 ML 2 ML VIAL ONE; +HYDROCODONE/ACETAMOPHEN 5/325MG TAB ONE; +HYDROCODONE/ACETAMOPHEN 5/325MG TAB PO PRN; +KETOROLAC TROMETHAMINE 30 MG/ML VIAL IV. PRN; +LACTATED RINGER'S 1000ML 1,000 ML IV PRN; +LACTATED RINGER'S 1000ML 1,000 ML IV SCH; +LIDOCAINE HCL 2% 2 ML VIAL (20MG/ML) ONE; +MIDAZOLAM HCL 1 MG/ML 2ML VIAL ONE; +ONDANSETRON INJ 2 MG/ML 2 ML VIAL IV PRN; +ONDANSETRON INJ 2 MG/ML 2 ML VIAL ONE; +PROPOFOL IV EMULSION 10 MG/ML 20 ML VIAL IV ONE; +SODIUM CHLORIDE 0.9% 1000ML 1,000 ML IV SCH
--- NOTE | 2017-03-06 07:13 | Discharge Instructions ---
Discharge Instructions Date of Service March 06, 2017. Admission Reason for Admission: Umbilical Hernia Discharge Discharge Diagnosis / Problem: umbilical hernia Discharge Goals Goal(s): Decrease discomfort, Improve function Activity Recommendations Activity Limitations: as noted below Lifting Limitations: no more than 10 pounds Exercise/Sports Limitations: until after follow-up appointment Shower/Bathe: tomorrow . Instructions / Follow-Up Instructions / Follow-Up call [phone] for follow up appnt in 2 weeks or if you have any questions/ concerns Current Hospital Diet Patient's current hospital diet: Discharge Diet Recommended Diet: Regular Diet Procedures Procedures Performed: umbilical hernia repair Pending Studies Studies pending at discharge: no Medical Emergencies . Who to Call and When: Medical Emergencies: If at any time you feel your situation is an emergency, please call 911 immediately. . Non-Emergent Contact Non-Emergency issues call your: Primary Care Provider, Surgeon Call Non-Emergent contact if: temperature is above 101, wound has increased drainage, wound has increased redness, wound has increased pain . "Provider Documentation" section prepared by Demetris Yan. . VTE Core Measure Inpt VTE Proph given/why not?: SCD's
--- NOTE | 2017-03-06 08:00 | [facility] Operative Report ---
Operative Report Operative Date March 06, 2017. Pre-Operative Diagnosis Umbilical Hernia Post-Operative Diagnosis umbilical hernia with fat incarceration Procedure(s) Performed open umbilical hernia repair Surgeon Dr. Yan Cover Making Machine Operator Surgeon(s) Lise Francisco PA-C Estimated Blood Loss 5 ml Findings 1.5 cm umbilical hernia with fat incarceration Specimens None Anesthesia LMA Disposition Recovery Room / PACU I attest to the content of the Intraoperative Record and any orders documented therein. Any exceptions are noted below.
--- NOTE | 2017-03-06 08:16 | Anesthesia Progress Nt - [facility] ---
Anesthesia Post Op Note Date & Time March 06, 2017 at 08:16 Vital Signs Pain Intensity: 3.0 Vital Signs Past 12 Hours Date Time Temp Pulse Resp B/P Pulse Ox O2 Delivery O2 Flow Rate FiO2 03/06/17 07:51 36.4 96 12 130/84 97 Room Air 03/06/17 06:28 36.6 80 18 137/87 95 Room Air Notes Mental Status: alert / awake / arousable, participated in evaluation Pt Amnestic to Procedure: Yes Nausea / Vomiting: adequately controlled Pain: adequately controlled Airway Patency, RR, SpO2: stable & adequate BP & HR: stable & adequate Hydration State: stable & adequate Anesthetic Complications: no major complications apparent Pt doing well.
--- NOTE | 2017-03-06 08:31 | OPERATIVE REPORT ---
DATE OF OPERATION: 03/06/2017 PREOPERATIVE DIAGNOSIS: Symptomatic umbilical hernia. POSTOPERATIVE DIAGNOSIS: A 1.5 cm umbilical hernia with fat incarceration. PROCEDURE: Open umbilical hernia repair. SURGEON: Dr. Yan. MECHANICAL ADJUSTER: Dana Francisco PA-C. ESTIMATED BLOOD LOSS: Approximately 5 mL. COMPLICATIONS: No immediate. ANESTHESIA: General laryngeal mask airway. OPERATIVE NOTE: After informed consent was obtained, the patient was taken to the operating suite and placed in supine position. After successful placement of laryngeal mask airway the abdominal area was shaved and sterilely prepped and draped in usual fashion. Curvilinear infraumbilical incision was made with 15 blade scalpel and carried down through the soft tissue using electrocautery. We got down to the hernia sac which we opened. There was some incarcerated fat within it which we were able to free up from surrounding fascial edges. I did take a Marla clamp to come around the superior aspect of the umbilicus and detached it from the underlying fascia so that we could get good fascial edges on the defect exposed. We then freed up all the incarcerated fat and dunked it back down into the abdominal cavity. This left us with about a 1-1.5 cm defect. Because of the superficial nature of the umbilicus we decided not to use the mesh at this small defect. I used 0 Ethibond in an interrupted [id number] fashion to close the defect. Once this was performed, we thoroughly irrigated the wound. I reconnected the umbilicus to the underlying fascia using 0 Vicryl in an interrupted fashion. Soft tissue was closed using 3-0 Vicryl and skin was closed using 4-0 Monocryl. Marcaine with epinephrine was injected around the area for postoperative analgesia and skin glue used as a dressing. The patient was awakened, extubated, and transferred to recovery in stable condition. I attest to the content of the Intraoperative Record and any orders documented therein. Any exceptio ns are noted below.
[2017-03-06 08:44] VITALS: TEMP 36.6
[2017-03-06 09:13] VITALS: BP 159/97; PULSE 96; O2SAT 96
== END | disposition home or self-care (01) ==
LOC: X.SURG 06:07
PROVIDERS: ATTEND Surgery
DX: K42.9 Umbilical hernia without obstruction or gangrene (principal); K21.9 Gastro-esophageal reflux disease without esophagitis; M19.90 Unspecified osteoarthritis, unspecified site; Z85.46 Personal history of malignant neoplasm of prostate; Z98.890 Other specified postprocedural states; Z80.42 Family history of malignant neoplasm of prostate; Z80.3 Family history of malignant neoplasm of breast; Z84.1 Family history of disorders of kidney and ureter